=== PATIENT | female | born 1960 | race Caucasian/White ===

== ENCOUNTER 2017-11-27 08:01 | Day surgery (SDC) | payer OTHER ==
[~2017-11-27 08:01] MED LIST: RINGER'S SOLUTION,LACTATED 1,000 ML IV PRN; ROPIVACAINE HCL/PF 40 MG in NORMAL SALINE 16 ML IJ PRN; ceFAZolin SODIUM 1 GM VIAL IV PRN
[2017-11-27] MEDS ORDERED: BUPIVACAINE HCL 50 ML VIAL IJ ONE ×2 (09:20)
[2017-11-27] MEDS ORDERED: RINGER'S SOLUTION,LACTATED 1,000 ML IV ONE (10:28)
--- NOTE | 2017-11-27 10:36 | POSTOP NO ---
Date of Surgery: 11/27/17 Patient Tolerated the Procedure: Well Post Operative Diagnosis/Procedures: Food Production Worker: Bahman Todd PA-C Post-operative Diagnosis: Left knee Jarvis cyst Finding: Above Procedure: Excision of left knee Jarvis cyst Estimated Blood Loss: Minimal Specimens: Jarvis cyst pathology
[2017-11-27 12:31] VITALS: BP 101/65
== END 2017-11-27 08:02 | disposition home or self-care (01) ==
LOC: AMB 08:01
PROVIDERS: ATTEND Orthopaedic Surgery
PROC: 0HBLXZZ Excision of Left Lower Leg Skin, External Approach (ICD-10-PCS; principal; 2017-11-27)
DX: M71.22 Synovial cyst of popliteal space [Baker], left knee (principal); F17.200 Nicotine dependence, unspecified, uncomplicated; M17.9 Osteoarthritis of knee, unspecified

== ENCOUNTER 2018-03-17 06:37 | Observation (INO) ==
[~2018-03-17 06:37] MED LIST changes: +MORPHINE SULFATE 15 MG TABLET.SA PO PRN; -RINGER'S SOLUTION,LACTATED 1,000 ML IV PRN; +ROPIVACAINE HCL/PF 100 MG, KETOROLAC TROMETHAMINE 30 MG, EPINEPHrine 0.2 MG in NORMAL S... IJ PRN; -ROPIVACAINE HCL/PF 40 MG in NORMAL SALINE 16 ML IJ PRN; +TRANEXAMIC ACID 1,000 MG in NORMAL SALINE 100 ML IV PRN
[2018-03-17] MEDS ORDERED: RINGER'S SOLUTION,LACTATED 1,000 ML IV ONE ×3 (07:24→10:35)
[2018-03-17] MEDS: RINGER'S SOLUTION,LACTATED 1,000 ML IV PRN ×2 (07:35→12:32)
--- NOTE | 2018-03-17 10:49 | POSTOP NO ---
Date of Surgery: 03/17/18 Patient Tolerated the Procedure: Well Post Operative Diagnosis/Procedures: Fuse Coiler: Bahman Todd PA-C Post-operative Diagnosis: Left knee degenerative joint disease, left recurrent Jarvis cyst Finding: Above Procedure: Left total knee arthroplasty with exploration and repair of Jarvis cyst Estimated Blood Loss: Minimal Specimens: Bone for disposal
[2018-03-17] MEDS ORDERED: ACETAMINOPHEN 500 MG TABLET PO PRN (10:53)
[2018-03-17] MEDS ORDERED: MAG HYDROX/ALUMINUM HYD/SIMETH 30 ML UDC PO PRN (10:53)
[2018-03-17] MEDS ORDERED: ZOLPIDEM TARTRATE 5 MG TABLET PO PRN (10:53)
[2018-03-17] MEDS ORDERED: PROMETHAZINE HCL 5 MG in DEXTROSE 5 % IN WATER 50 ML IV PRN ×2 (10:53)
[2018-03-17] MEDS ORDERED: MORPHINE SULFATE 2 MG/ML DISP.SYRIN IV PRN (10:53)
[2018-03-17] MEDS ORDERED: oxyCODONE HCL/ACETAMINOPHEN 1 TAB TABLET PO PRN (10:53)
[2018-03-17] MEDS ORDERED: MAGNESIUM HYDROXIDE 30 ML UDC PO PRN (10:53)
[2018-03-17] MEDS ORDERED: diphenhydrAMINE HCL 50 MG/ML VIAL IV PRN (10:53)
--- NOTE | 2018-03-17 10:53 | OR ---
Operative Report - Dictated Report Narrative: Date: 03/17/2018 Preoperative diagnosis: Left Knee degenerative joint disease with recurrent Jarvis cyst. Postoperative diagnosis: Left Knee degenerative joint disease with recurrent Jarvis cyst. Procedure: Left Total knee arthroplasty. Exploration and repair of Jarvis cyst left knee Surgeon: Ho Arora M.D. Criminal Justice Instructor: Bahman Todd PA-C Anesthesia: Spinal with regional block and local periarticular joint injection. Complications: None Specimens: Bone for disposal. Estimated blood loss: Minimal. Tourniquet time: 120 Minutes at 325 millimeters of mercury. Retained implants: Depuy Attune size 6 narrow left lugged cemented posterior stabilized femoral component. Size for fixed-bearing cemented tibial platform. 6 by 5 millimeter posterior stabilized cross-linked tibial insert. 35 millimeter medialized patella button. Indications: Mrs. Barriga is a 58-year-old female who has had long-standing left knee pain and arthrosis and recurrent Jarvis cyst. This patient was followed in my clinic for period of time with significant complaints of left knee pain consistent with arthritic changes. She had failed conservative measures including, but not limited to, activity modification, passage of time, medications, and other conservative measures. Patient wished to proceed with surgical treatment. The risks, benefits, and alternatives were discussed in clinic. The risks of , blood clots, bleeding, infection, nerve/tendon blood vessel/ injury, malposition of components, intraoperative fracture, postoperative limited range of motion, persistent pain, failure of components, and need for additional procedures. Patient wished to proceed consent was obtained after answering all questions. Procedure: After marking the correct extremity on the floor, the patient was taken to the operating room. A timeout was performed. IV antibiotics consisting of Ancef were administered prior to the procedure. A regional followed by spinal anesthetic was induced by anesthesia, per my request, on the operative table with all bony prominences well-padded. Pa catheter was placed, and a bump was placed under the operative side buttock. SCDs and QUEENIE hose were utilized on the nonoperative leg. A well-padded tourniquet was applied to the operative thigh. The operative leg was then pre-scrubbed with alcoho,l prepped, and draped in a standard sterile fashion. After exsanguinating the extremity with an Esmarch bandage, the tourniquet was inflated. After marking out the anterior knee for standard incision centered over the patella, the skin was incised and dissected down to the joint retinaculum. The joint retinaculum was marked out as well as the horizontal axis of the patella, and a standard medial parapatellar arthrotomy was then made. The most proximal aspect of the quadriceps tendon and the patella tendon insertion were protected from release. A partial synovectomy was performed as well as a resection of the infrapatellar fat pad. The distal femoral fat pad proximal to the trochlea was also resected using cautery. The soft tissues were elevated off the medial aspect of the proximal tibia using a Benavides elevator ensuring that we did not transect the medial collateral ligament. Upon initial evaluation range of motion was approximately 0 degrees to 130 degrees of flexion. There were signs of advanced arthrosis in the patellofemoral and lateral joint spaces. There were large marginal osteophytes which were removed with a rongeur. The knee was hyperflexed and the patella was tucked laterally. Protecting the surrounding soft tissues with Homans, an entry drill was placed down the femoral canal using Whitesides line for guidance into the entry point. The intramedullary femoral alignment shell was utilized in order to cut the distal femur in 5 degrees of valgus resecting 10 millimeters of bone. Next the distal femur was sized to a size 6. A posterior referencing guide was utilized to place the distal femoral cutting block in 3 degrees of external rotation. This was pinned into place. The rotation was confirmed both visually and based on anatomic landmarks. The 4 in 1 cutting jig of the appropriate size was utilized in order to make all bony cuts. The angle wing was used to ensure no notching. Retractors were utilized in order to protect surrounding soft tissues. This cut did not result in any excessive notching. We then cut the box centered over the distal femur. This allowed for resection of the anterior and posterior cruciate ligaments. I then turned my attention to the preparation of the tibia. Using an extra medullary tibial alignment shell, 2 millimeters of bone was resected off the lateral articular surface. This was made perpendicular to the mechanical axis of the joint with the alignment shell centered over the ankle mortise. The alignment shell was checked and was noted to be parallel to the mechanical axis, centered over the medial one third of the tibial tubercle, paralleling the anterior surface of the tibia. We then turned our attention to the remaining meniscus and soft tissues. These were removed while protecting the surrounding ligaments and soft tissues. The marginal osteophytes off the anterior, posterior, medial, lateral aspects of the femur and tibia were removed. The tibia was sized out to a size 4. Next the tibia was drilled and punched in an externally rotated position. Next the trial femur and a series of tibial inserts were utilized in order to allow for full extension and maximal flexion. It was found that a 5 millimeter insert gave the best range of motion and stability at multiple flexion points as well as at full extension there was less than 2 mm of gapping both medially and laterally. There is minimal anterior translation with the knee at 90 degrees of flexion and no signs of being able to dislocate the knee. The patella was then prepared. The initial thickness was 22 millimeters. This was reamed down to 12 millimeters parallel to the anterior surface of the patella. It was sized out to a size 35 medialized patella button. This was then drilled and trialed. Without any medial restraint the patella tracked appropriately and did not sublux or dislocate. We did encounter a large approximately 2 cm opening into the Jarvis cyst. In order to help decrease the risk of recurrence this was attempted to be closed with a 0 Vicryl suture in a running locking fashion. At this point, it was felt these were the appropriate sized implants, and all trials were removed. The standard periarticular joint injection consisting of ropivacaine, Toradol, and epinephrine were injected into the periarticular joint tissues. The bony surfaces were thoroughly irrigated with a pulsatile- suction saline irrigation device. A bone plug from the prior resected anterior chamfer cut was placed into the drill hole at the distal femur. The bony surfaces were then dried in preparation for placement of the implants. The cement was vacuum mixed per the insurance biller's instructions. The cement was placed on the dry bony surfaces and posterior aspect of the implants. The implants were impacted into place, removing all extruded cement. At this point anesthesia administered tranexamic acid per protocol intravenously. The knee was placed in extension with axial loading with the trial insert while the cement cured. Once the cement cured, all remaining extruded cement was removed. The knee was placed through a range of motion with the trial insert to ensure appropriate range of motion and stability. Final range of motion was approximately 0 to 130 degrees. The knee was again thoroughly irrigated with pulsatile saline lavage. The final polyethylene insert was then impacted into place ensuring no retained soft tissues. The remaining periarticular joint injection was injected. A medium Hemovac drain was placed exiting superior laterally. The knee was then placed over a triangle and the arthrotomy was closed with interrupted #1 Vicryl after thoroughly irrigating the joint. We then turned our attention to the posterior knee. Utilizing her prior incision the posterior knee was opened. We didn't encounter a synovial lined Jarvis cyst. This was excised. There was a significant opening in the posterior knee fascia. This extended into the posterior aspect of the knee. The synovial tissues were excised and the fascia was closed with running locking 0 Vicryl and oversewn with a tissues above that with 0 Vicryl as well. The skin was closed with 3-0 Vicryl and 3-0 nylon. The deep and subcutaneous tissues were closed with interrupted 0 and 3-0 Vicryl respectively. Skin was closed with a running subcutaneous 3-0 Monocryl and Prineo Dermabond dressing. 4 x 4's, Sof-Rol, and a full leg Home wrap were applied. The posterior knee wound was covered with Xeroform, 4 x 4, ABD. All sponge, needle, blade, and instrument counts were correct prior to closing the wounds. Postoperative condition: The patient was awoken and transferred to the postanesthesia care unit in stable condition. Plan is to be admitted to the inpatient medical/surgical floor postoperatively for 24 hours of IV antibiotics , physical therapy, occupational therapy, and medical comanagement. Patient will be weightbearing as tolerated with range of motion as tolerated. DVT prophylaxis will be with SCDs, QUEENIE hose, and pharmacological anticoagulation. Anticipated hospital stay is approximately 1-3 days.
[2018-03-17] MEDS ORDERED: ALBUTEROL SULFATE 2.5 MG/0.5 ML VIAL.NEB IH PRN (10:55)
--- NOTE | 2018-03-17 11:12 | OR ---
Anesthesia Procedure Note - Anesthesia Procedure Note Date of Service: 03/17/18 Narrative: Vital Signs - Last Taken Temp 36.8 C 03/17/18 06:56 Pulse 72 03/17/18 06:56 Resp 18 03/17/18 06:56 BP 109/71 03/17/18 06:56 Pulse Ox 95 03/17/18 06:56 O2 Oxygen Delivery Method Room Air 03/17/18 11:10 ANESTHESIA PROCEDURE NOTE Date of Procedure: 03/17/2018 Time of procedure: 8:20 AM. Performed by: KALEB Galvez CRNA, MSN Apprentice Plant Attendant: Nitza Villatoro RN. Preprocedure diagnosis: Post left total knee arthroplasty pain relief. Post procedure diagnosis: Same. Procedure: Left Adductor Canal Block. Indications: Post left total knee arthroplasty pain relief pain relief. Findings: See below. Details of the procedure: The patient was brought to OR #4 and placed in supine position. The patient's left femoral area to the knee was prepped with chlorhexidine and using ultrasound guidance the left femoral artery and nerve was identified and then followed to the level of the adductor canal. Lidocaine 1% was infiltrated to the skin of the intended injection site. Under ultrasound guidance the saphenous nerve was approached with visualization of a 4 inch shielded block needle. Once saphenous nerve was identified with proximity to the needle tip, the saphenous nerve was surrounded with 20 mL bupivacaine 0.25% with 1-200,000 epinephrine. Please see radiology/ultrasound report for details and retained images of the procedure. EBL: 0 Fluids: N/A. Specimen: N/A. Post procedure condition: The patient tolerated the procedure well. No complications were noted. Thank you for this consultation. Yoel Parks CRNA, RUG MEASURER, MSN
[2018-03-17] MEDS: KETOROLAC TROMETHAMINE 15 MG/ML VIAL IV SCH ×2 (13:57→18:06)
[2018-03-17] MEDS: ceFAZolin SODIUM 1 GM in DEXTROSE 5 % IN WATER 50 ML IV SCH ×4 (13:57→19:03)
[2018-03-17] MEDS: ONDANSETRON HCL/PF 2 MG/ML VIAL IV PRN ×2 (14:48→19:35)
[2018-03-17] MEDS: DEXTROSE 5%-LACTATED RINGERS 1,000 ML IV PRN (19:06)
[2018-03-17] MEDS ORDERED: SENNOSIDES/DOCUSATE SODIUM 1 TAB TABLET PO SCH (21:00)
[2018-03-17] MEDS: MORPHINE SULFATE 15 MG TABLET.SA PO SCH (21:02)
[2018-03-18] MEDS: ceFAZolin SODIUM 1 GM in DEXTROSE 5 % IN WATER 50 ML IV SCH ×2 (00:17)
[2018-03-18] MEDS: KETOROLAC TROMETHAMINE 15 MG/ML VIAL IV SCH ×3 (00:18→12:54)
[2018-03-18] MEDS: DEXTROSE 5%-LACTATED RINGERS 1,000 ML IV PRN (03:57)
[2018-03-18 05:45] LABS: Hematocrit 35.9 % (37.0-47.0); Hemoglobin 11.7 gm/dL (12.5-16.0); Mean Cell Volume 97.8 fl (78-100); Mean Corpuscular Hemoglobin 31.9 pg (27-31); Mean Corpuscular Hgb Conc 32.6 g/dl (32-36); Platelet Count 275 K/mm3 (150-450); Red Blood Count 3.67 M/mm3 (4.2-5.4); Red Cell Distribution Width 11.9 % (11.5-14.0); White Blood Count 13.5 K/mm3 (4.0-10.5)
[2018-03-18 05:53] LABS: BUN/Creatinine Ratio 17.9 (9.0-21.6); Calcium * 8.7 mg/dL (7.9-10.9); Carbon Dioxide 33.1 mmol/L (24-32.6); Estimated Creat Clear 109.1; Potassium 4.1 mmol/L (3.4-4.6)
[2018-03-18] MEDS ORDERED: OMEGA-3 FATTY ACIDS 1 CAP CAPSULE PO SCH (09:00)
[2018-03-18] MEDS ORDERED: ASCORBIC ACID 500 MG TABLET PO SCH (09:00)
[2018-03-18] MEDS ORDERED: MULTIVITAMINS 1 CAP CAPSULE PO SCH (09:00)
[2018-03-18] MEDS ORDERED: AZITHROMYCIN 250 MG TABLET PO SCH (09:00)
[2018-03-18] MEDS ORDERED: ENOXAPARIN SODIUM 40 MG/0.4 ML SYRG SC SCH (09:53)
[2018-03-18] MEDS: MORPHINE SULFATE 15 MG TABLET.SA PO SCH (09:58)
--- NOTE | 2018-03-18 16:32 | DS ---
(1) Acute blood loss anemia Problem: Acute Description of Stay: Mrs. Brariga was admitted to the floor after undergoing total knee arthroplasty and exploration of jarvis's cyst. Tolerated this well. Was admitted to the floor postoperatively for 24 hours of IV antibiotics, pain control, medical comanagement, and occupational and physical therapy. OT and PT were consulted to assist with activities of daily living and ambulation. Was made weightbearing as tolerated with range of motion as tolerated. Pain was initially controlled with IV regimen. This was transitioned to oral once tolerating a by mouth intake. Was resumed on home diet and medications. Had a Pa catheter inserted and the operating room which was discontinued on postoperative day 1. A drain was placed intraoperatively into the knee which was discontinued on postoperative day 1. Lovenox SCD and QUEENIE hose were utilized for DVT prophylaxis. Vital signs remained stable to the hospital course. Serial labs were obtained which showed a final hemoglobin of 11.7 grams. BMP was reviewed and was stable. Physical examination throughout the hospital course showed an extremity that had sensation that was intact to light touch, palpable pulses, a benign wound, motor intact to the toes, ankle, and knee. Knee range of motion was approximately 5 degrees to 70 degrees. Once an oral pain regimen was tolerated and physical therapy goals were met, it was felt that they were stable for discharge to home. Instructions: Continue with weightbearing as tolerated and range of motion as tolerated. Keep covered to shower or bathe. If you note any drainage or for comfort you can cover with dry gauze and tape. Change every 2-3 days as needed. Continue with physical therapy. Resume home diet. Report any fever over 101.5 Fahrenheit, uncontrolled pain, increased drainage, foul odor of drainage, new or increased calf pain or shortness of breath, or any other significant complaints. A 325mg dialy aspirin will be started after finishing anticoagulation if not allergic. Continue with QUEENIE hose on the operative extremity until instructed otherwise. No driving until instructed otherwise. Follow up in approximately 10-14 days. Procedures Performed: see notes below List Procedures: Left total knee arthroplasty, exploration of Jarvis's cyst with closure Discharge Location: Home Disposition: Home self-care Condition: Good Discharge Activity: Activity as tolerated Referrals: Marek Yeager MD [Primary Care Provider] - Additional Patient Instructions (free text): Outpatient Physical Therapy at [facility] on 2:30pm. Follow with Orthopedic office on Thursday04-06-18 @ 2:45pm. Prescriptions (Any new or edited meds): Enoxaparin Sodium [Lovenox] 40 mg SC Q24H #7 disp.syrin oxyCODONE HCL/ACETAMINOPHEN [Percocet 5 MG/325 MG] 2 tab PO Q4H PRN #90 tablet PRN Reason: Moderate Pain (Pain Scale 4-6) Sennosides/Docusate Sodium [Senokot-S] 2 tab PO HS #30 tablet Complete Home Medications List: Complete Home Medication List: Ascorbic Acid [Vitamin C] 500 mg PO DAILY 11/25/17 Multivitamins [Multivitamin Hermann] 1 cap PO DAILY 11/25/17 Albuterol Sulfate [Proair Hfa] 2 puff IH Q6H PRN 01/20/18 Docosahexanoic Acid/Epa [Fish Oil Concentrate Softgel] 1 each PO DAILY 01/20/18 Azithromycin [Zithromax] 250 mg PO DAILY 03/17/18 Enoxaparin Sodium [Lovenox] 40 mg SC Q24H #7 disp.syrin 03/18/18 Sennosides/Docusate Sodium [Senokot-S] 2 tab PO HS #30 tablet 03/18/18 oxyCODONE HCL/ACETAMINOPHEN [Percocet 5 MG/325 MG] 2 tab PO Q4H PRN #90 tablet 03/18/18 Amb Orders for Discharge: PT Evaluation and Treatment Facility: [facility], Location: Rehabilitation Services
[2018-03-18 17:40] VITALS: BP 114/75
== END 2018-03-18 18:17 | disposition home or self-care (01) ==
LOC: AMB 06:37 → INTOOBSV 11:32 → MS 11:32
PROVIDERS: ADMIT Orthopaedic Surgery; ATTEND Orthopaedic Surgery
DX: M17.12 Unilateral primary osteoarthritis, left knee
CPT/HCPCS: 36415; 73560; 80048; 85027; 96361; 96365; 96366; 96372; 96375; 96376; 97110; 97116; 97161; 97165; 97535; G0378; G8987; G8988; G8989; J2405